=== PATIENT | male | born 2000 | race Caucasian/White ===

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

== ENCOUNTER 2024-06-21 20:08 | Emergency (ER) | payer OTHER ==
[2024-06-21] MEDS ORDERED: LIDOCAINE 1% INJ 10MG/ML (20 ML MDV) ONE (23:28)
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
== END 2024-06-21 23:45 | disposition home or self-care (01) ==
LOC: EC 20:08
CPT/HCPCS: 12002; 70450; 72125; 99284